=== PATIENT | female | born 1950 | race Caucasian/White ===

== ENCOUNTER 2016-10-08 10:36 | Observation (INO) | payer BC ==
[~2016-10-08] VITALS: Ht 167.6 cm; Wt 85.0 kg
[2016-10-08] VITALS (12 sets, daily range): BP systolic 113–146; BP diastolic 64–89; PULSE 66–88; RESP 16–22; TEMP 96.3–98.8; O2SAT 95–98
--- NOTE | 2016-10-08 10:54 | PD ---
HPI Chief Complaint: Chest Pain Time Seen by Provider: 10:52 Travel History International Travel<30 days: No Contact w/Intl Traveler<30days: No Traveled to known affect area: No History of Present Illness HPI 65-year-old female with history of hypertension and diabetes, presents to the ER today for sudden onset of substernal chest pains or radiation up to the left jaw and the left arm, measuring at a 8 out of 10 currently. She states that she was sitting at her desk when it happened. She did not note any exacerbating or alleviating factors. Her pain is currently an 8 out of 10. She has been nauseous. She denies any shortness of breath, coughing, fevers, or any other symptoms. She denies any previous episodes. Modifying Factors: None Associated Signs & Symptoms: Chest pain Risk Factors: Hypertension, diabetes PFSH Past Medical History ?: Not Social History Tobacco Use: No Allergies-Medications (Allergen,Severity, Reaction): Coded Allergies: No Known Allergies (Unverified , 10/08/16) Reported Meds & Prescriptions Reported Meds & Active Scripts Active Reported Simvastatin 5 Mg Tab 5 Mg PO DAILY Norvasc (Amlodipine Besylate) 5 Mg Tab 5 Mg PO DAILY Lisinopril 10 Mg Tab 10 Mg PO DAILY Review of Systems Except as stated in HPI: all other systems reviewed are Neg Physical Exam Narrative GENERAL: Well-developed elderly white female patient currently in mild distress. Mildly anxious. Awake and oriented 3. SKIN: Focused skin assessment warm/dry. HEAD: Atraumatic. Normocephalic. EYES: Pupils equal and round. No scleral icterus. No injection or drainage. ENT: No nasal bleeding or discharge. Mucous membranes pink and moist. NECK: Trachea midline. No JVD. CARDIOVASCULAR: Regular rate and rhythm. No murmur appreciated. Pulses are present and equal bilaterally. RESPIRATORY: No accessory muscle use. Clear to auscultation. Breath sounds equal bilaterally. GASTROINTESTINAL: Abdomen soft, non-tender, nondistended. Hepatic and splenic margins not palpable. MUSCULOSKELETAL: No obvious deformities. No clubbing. No cyanosis. No edema. NEUROLOGICAL: Awake and alert. No obvious cranial nerve deficits. Motor grossly within normal limits. Normal speech. PSYCHIATRIC: Appropriate mood and affect; insight and judgment normal. Data Data Last Documented VS Vital Signs Date Time Temp Pulse Resp B/P Pulse Ox O2 Delivery O2 Flow Rate FiO2 6/13/17 11:40 79 16 123/75 98 Room Air 10/08/16 10:37 98.8 Orders Electrocardiogram (10/08/16 ) Electrocardiogram (10/08/16 10:52) Ckmb (Isoenzyme) Profile (10/08/16 10:52) Complete Blood Count With Diff (10/08/16 10:52) Comprehensive Metabolic Panel (10/08/16 10:52) Magnesium (Mg) (10/08/16 10:52) Prothrombin Time / Inr (Pt) (10/08/16 10:52) Act Partial Throm Time (Ptt) (10/08/16 10:52) Troponin I (10/08/16 10:52) Chest, Single Ap (10/08/16 10:52) Ecg Monitoring (10/08/16 10:52) Bilateral Bp Monitoring (10/08/16 10:52) Iv Access Insert/Monitor (10/08/16 10:52) Oximetry (10/08/16 10:52) Oxygen Administration (10/08/16 10:52) Sodium Chloride 0.9% Flush (Ns Flush) (10/08/16 11:00) CKMB (10/08/16 10:50) CKMB% (10/08/16 10:50) Aspirin (Aspirin) (10/08/16 12:15) Nitroglycerin 2% Oint (Nitroglycerin 2% (10/08/16 12:15) Labs Laboratory Tests Test 10/08/16 10:50 White Blood Count 8.4 TH/MM3 Red Blood Count 3.92 MIL/MM3 Hemoglobin 12.1 GM/DL Hematocrit 34.8 % Mean Corpuscular Volume 88.6 FL Mean Corpuscular Hemoglobin 30.8 PG Mean Corpuscular Hemoglobin 34.8 % Concent Red Cell Distribution Width 13.5 % Platelet Count 176 TH/MM3 Mean Platelet Volume 10.0 FL Neutrophils (%) (Auto) 68.5 % Lymphocytes (%) (Auto) 23.6 % Monocytes (%) (Auto) 6.5 % Eosinophils (%) (Auto) 0.8 % Basophils (%) (Auto) 0.6 % Neutrophils # (Auto) 5.7 TH/MM3 Lymphocytes # (Auto) 2.0 TH/MM3 Monocytes # (Auto) 0.5 TH/MM3 Eosinophils # (Auto) 0.1 TH/MM3 Basophils # (Auto) 0.1 TH/MM3 CBC Comment DIFF FINAL Differential Comment Prothrombin Time 10.5 SEC Prothromb Time International 1.0 RATIO Ratio Activated Partial 25.2 SEC Thromboplast Time Sodium Level 141 MEQ/L Potassium Level 3.8 MEQ/L Chloride Level 106 MEQ/L Carbon Dioxide Level 27.3 MEQ/L Anion Gap 8 MEQ/L Blood Urea Nitrogen 20 MG/DL Creatinine 0.96 MG/DL Estimat Glomerular Filtration 58 ML/MIN Rate Random Glucose 95 MG/DL Calcium Level 9.6 MG/DL Magnesium Level 1.7 MG/DL Total Bilirubin 0.4 MG/DL Aspartate Amino Transf 30 U/L (AST/SGOT) Alanine Aminotransferase 41 U/L (ALT/SGPT) Alkaline Phosphatase 96 U/L Total Creatine Kinase 164 U/L Creatine Kinase MB 2.6 NG/ML Troponin I LESS THAN 0.02 NG/ML Total Protein 7.6 GM/DL Albumin 4.2 GM/DL MDM Medical Decision Making Medical Screen Exam Complete: Yes Emergency Medical Condition: Yes Medical Record Reviewed: Yes Interpretation(s) EKG shows sinus rhythm at a rate of 80 bpm with T-wave depressions in 1 and aVL. No signs of acute ST-T elevations. Last 24 hours Impressions Chest X-Ray 10/08/16 1052 Signed Impressions: Service Date/Time: Saturday, October 08, 2016 11:02 - CONCLUSION: No acute disease. Kristopher Frazier MD Laboratory Tests Test 10/08/16 10:50 Red Blood Count 3.92 MIL/MM3 (4.00-5.30) Hematocrit 34.8 % (35.0-46.0) Blood Urea Nitrogen 20 MG/DL (7-18) Estimat Glomerular Filtration 58 ML/MIN (>89) Rate Troponin I LESS THAN 0.02 NG/ML (0.02-0.05) Differential Diagnosis Chest painsACS versus dysrhythmias versus anxiety attack versus pneumonia Narrative Course EKG shows abnormal T waves in 1 and aVL. Cardiac enzymes are negative. Chest x -ray did not show any signs of acute processes. Vital signs are stable. Patient had been given aspirin in the ER. At this point, my plan would be to admit the patient for further treatment and evaluation of chest pain. Diagnosis Primary Impression: Chest pain Admitting Information Admitting Physician Requests: Admit Matt Gagnon MD Oct 08, 2016 10:54
[2016-10-08] MEDS ORDERED: LISI10TA3 PO (10:57)
[2016-10-08] MEDS ORDERED: SIMV5TAB3 PO (10:57)
[2016-10-08] MEDS ORDERED: AMLO5 PO (10:57)
[2016-10-08] MEDS ORDERED: SODIUM CHLORIDE 0.9% FLUSH 10 ML FLUSH IVF PRN (11:00)
[2016-10-08 11:24] LABS: AUTOMATED NEUTROPHIL # 5.7 TH/MM3 (1.8-7.7); BASOPHIL # 0.1 TH/MM3 (0-0.2); BASOPHIL % 0.6 % (0.0-2.0); EOSINOPHIL # 0.1 TH/MM3 (0-0.4); EOSINOPHIL % 0.8 % (0.0-4.0); HEMATOCRIT 34.8 % (35.0-46.0); HEMO FLAGS DIFF FINAL; LYMPH % 23.6 % (9.0-44.0); MEAN CELL VOLUME 88.6 FL (80.0-100.0); MEAN CORPUSCULAR HEMOGLOBIN 30.8 PG (27.0-34.0); MEAN CORPUSCULAR HGB CONC 34.8 % (32.0-36.0); MONO % 6.5 % (0.0-8.0); NEUT % 68.5 % (16.0-70.0); PLATELET COUNT 176 TH/MM3 (150-450); RED BLOOD COUNT 3.92 MIL/MM3 (4.00-5.30); RED CELL DISTRIBUTION WIDTH 13.5 % (11.6-17.2); WHITE BLOOD COUNT 8.4 TH/MM3 (4.0-11.0)
[2016-10-08 11:33] LABS: APTT (PATIENT) 25.2 SEC (24.3-30.1); PROTHROMBIN TIME - PATIENT 10.5 SEC (9.8-11.6)
--- NOTE | 2016-10-08 11:37 | RADRPT ---
EXAM DATE/TIME: 10/08/2016 11:02 [facility] COMPARISON: No previous studies available for comparison. INDICATIONS : Chest pain. MEDICAL HISTORY : None. SURGICAL HISTORY : None. ENCOUNTER: Initial ACUITY: 1 day PAIN SCORE: 9/10 LOCATION: Left upper chest FINDINGS: A single view of the chest demonstrates the lungs to be symmetrically aerated without evidence of mas s, infiltrate or effusion. The cardiomediastinal contours are unremarkable. Osseous structures are intact. CONCLUSION: No acute disease. Kristopher Frazier MD on October 08, 2016 at 11:34 Board Certified Radiologist. This report was verified electronically.
[2016-10-08 11:48] LABS: ALT (GPT) 41 U/L (10-53); ANION GAP 8 MEQ/L (5-15); AST (GOT) 30 U/L (15-37); BICARBONATE 27.3 MEQ/L (21.0-32.0); BLOOD UREA NITROGEN 20 MG/DL (7-18); CHLORIDE 106 MEQ/L (98-107); GLOMERULAR FILTRATION RATE 58 ML/MIN (>89); MAGNESIUM 1.7 MG/DL (1.5-2.5); POTASSIUM 3.8 MEQ/L (3.5-5.1); SODIUM (NA) 141 MEQ/L (136-145)
[2016-10-08 11:52] LABS: ALKALINE PHOSPHATASE 96 U/L (45-117); CREATINE KINASE 164 U/L (26-192); TOTAL BILIRUBIN ADULT 0.4 MG/DL (0.2-1.0)
[2016-10-08 12:05] LABS: CKMB 2.6 NG/ML (0.5-3.6)
[2016-10-08] MEDS ORDERED: NITROGLYCERIN 2% OINT 1 GM PACKET TOPICAL ONE (12:15)
[2016-10-08] MEDS ORDERED: ASPIRIN 325 MG TAB PO ONE (12:15)
[2016-10-08] MEDS ORDERED: SODIUM CHLORIDE 0.9% FLUSH 5 ML FLUSH IVF PRN (13:30)
[2016-10-08] MEDS ORDERED: ACETAMINOPHEN 500 MG CPLT PO PRN (13:30)
[2016-10-08] MEDS ORDERED: ALPRAZolam 0.25 MG TAB PO PRN (13:30)
[2016-10-08] MEDS ORDERED: ONDANSETRON HCL 4 MG/2 ML VIAL IV PRN (13:30)
[2016-10-08] MEDS ORDERED: ACETAMINOPHEN/HYDROcodone 325 MG/7.5 MG TAB PO PRN (13:30)
--- NOTE | 2016-10-08 13:34 | HHI.HP ---
HPI Primary Care Physician Non-Staff Chief Complaint Chest pain History of Present Illness This is a 65-year-old female that presents to ED via private vehicle with a friend from work with a complaint of developing a left upper chest pressure while sitting at desk at work. This began around 10:00 this morning and is still present at this time. She has nitroglycerin ointment on her chest and that has not improved her symptoms. The discomfort is currently been present for 3-1/2 hours. Nothing is improving symptoms. The discomfort radiates down her left arm tingling in her fingers as well as rating in the left side of her neck. The discomfort has been an 8 out of 10. She was nauseous. In time she has had a difficult time catching her breath. Taking a deep breath seems to worsen the symptoms. Denies diaphoresis. She also recalls last evening after having a burger without bowel movement and some qatari fries and a couple beers that she developed a burning sensation in her throat. She had no discomforts her chest with this. States she does not usually suffer from GERD. 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 Denies swelling in her legs. She states the discomfort is worsened with deep inspiration. Patient is not on hormone therapy. Review of Systems General: Patient denies fevers, chills recent. Patient has traveled to and from [place] recently. HEENT: Patient denies headache, sore throat, difficulty swallowing. Cardiovascular: Has the chest discomfort as mentioned above. Denies sensation of heart beating rapidly or irregularly. No syncope. Denies diaphoresis. Respiratory: A time she's had a difficult time catching her breath. Discomfort is worsened with deep inspiration. Denies coughing wheezing or hemoptysis. GI: She was little nauseated this morning. Patient denies vomiting, diarrhea, abdominal pain, bloody stools. Musculoskeletal: Patient denies joint pain or edema. Denies calf pain or edema. Neurovascular: Patient denies numbness, tingling, weakness in extremities. Denies headache. Endocrine: Denies polyuria and polydipsia. Hematologic: Denies easy bruising. Skin: Denies rash or itching. Past Family Social History Allergies: Coded Allergies: No Known Allergies (Unverified , 10/08/16) Past Medical History Hypertension, hyperlipidemia, diabetes, kidney stones. Denies known CAD. Past Surgical History Hysterectomy, ectopic , appendectomy, back surgery, and cataracts. Reported Medications Reported Meds & Active Scripts Active Reported Simvastatin 5 Mg Tab 5 Mg PO DAILY Norvasc (Amlodipine Besylate) 5 Mg Tab 5 Mg PO DAILY Lisinopril 10 Mg Tab 10 Mg PO DAILY Active Ordered Medications Current Medications Medications (Trade) Dose Ordered Sig/Tory Route Start Time Stop Time Status Last Admin (NS Flush) 2 ml UNSCH PRN IVF 10/08/16 11:00 (NS Flush) 2 ml UNSCH PRN IVF 10/08/16 13:30 UNV Family History Denies family history of CAD. Social History Patient is a nonsmoker. Has occasional alcohol. Denies illicit drugs. She is a nurse. Physical Exam Vital Signs Vital Signs Date Time Temp Pulse Resp B/P Pulse Ox O2 Delivery O2 Flow Rate FiO2 10/08/16 12:58 82 16 143/88 98 Room Air 10/08/16 11:40 79 16 123/75 98 Room Air 10/08/16 10:54 96 Room Air 10/08/16 10:54 96 Room Air 10/08/16 10:47 96 Room Air 10/08/16 10:43 78 22 142/89 97 10/08/16 10:37 98.8 88 19 146/74 97 Physical Exam GENERAL: This is a well-nourished, well-developed patient, in no apparent distress. Patient speaks in clear complete sentences. Patient is pleasant. Her daughter and other coworkers are also at the bedside. HEENT: Head is atraumatic and normocephalic. Neck is supple without lymphadenopathy and trachea is midline. No JVD or carotid bruits. CARDIOVASCULAR: Regular rate and rhythm without murmurs, gallops, or rubs. RESPIRATORY: Clear to auscultation. Breath sounds equal bilaterally. No wheezes , rales, or rhonchi. Left upper chest wall is tender and worsens the discomfort that she has been having. No use of accessory muscles. GASTROINTESTINAL: There is some mild epigastric tenderness. No guarding or rebound. Otherwise abdomen is nontender. Abdomen is nondistended. Abdomen soft. No obvious pulsatile mass or bruit. No CVA tenderness. Strong femoral pulses bilaterally. Normal bowel sounds in all quadrants. MUSCULOSKELETAL: Patient is moving upper and lower extremities freely. No calf tenderness or edema, no Homans sign. Strong pulses in upper and lower extremities. NEUROLOGICAL: Patient is alert and oriented. Cranial nerves 2-12 are grossly intact. No focal deficits and speech is clear. SKIN: No rash and turgor is normal. Laboratory Laboratory Tests Test 10/08/16 10:50 White Blood Count 8.4 Red Blood Count 3.92 Hemoglobin 12.1 Hematocrit 34.8 Mean Corpuscular Volume 88.6 Mean Corpuscular Hemoglobin 30.8 Mean Corpuscular Hemoglobin 34.8 Concent Red Cell Distribution Width 13.5 Platelet Count 176 Mean Platelet Volume 10.0 Neutrophils (%) (Auto) 68.5 Lymphocytes (%) (Auto) 23.6 Monocytes (%) (Auto) 6.5 Eosinophils (%) (Auto) 0.8 Basophils (%) (Auto) 0.6 Neutrophils # (Auto) 5.7 Lymphocytes # (Auto) 2.0 Monocytes # (Auto) 0.5 Eosinophils # (Auto) 0.1 Basophils # (Auto) 0.1 CBC Comment DIFF FINAL Differential Comment Prothrombin Time 10.5 Prothromb Time International 1.0 Ratio Activated Partial 25.2 Thromboplast Time Sodium Level 141 Potassium Level 3.8 Chloride Level 106 Carbon Dioxide Level 27.3 Anion Gap 8 Blood Urea Nitrogen 20 Creatinine 0.96 Estimat Glomerular Filtration 58 Rate Random Glucose 95 Calcium Level 9.6 Magnesium Level 1.7 Total Bilirubin 0.4 Aspartate Amino Transf 30 (AST/SGOT) Alanine Aminotransferase 41 (ALT/SGPT) Alkaline Phosphatase 96 Total Creatine Kinase 164 Creatine Kinase MB 2.6 Troponin I LESS THAN 0.02 Total Protein 7.6 Albumin 4.2 Result Diagram: 10/08/16 1050 10/08/16 1050 Imaging Last 24 hours Impressions Chest X-Ray 10/08/16 1052 Signed Impressions: Service Date/Time: Saturday, October 08, 2016 11:02 - CONCLUSION: No acute disease. Kristopher Frazier MD Course Initial EKG is sinus rhythm rate of [address] segment depressions or elevations. Assessment and Plan Assessment and Plan * Chest pain: Patient will continue to have serial cardiac enzymes and EKGs for ruling out purposes. She does have a pleuritic component of her chest discomfort and has traveled recently. We'll get a d-dimer. Patient will be seen by Dr. Zapata cardiology and the chest and center. Patient will likely have a stress test in the morning if she rules out and if pulmonary embolus is ruled out. We will also get a lipase level. * Hypertension: Continue current medication. * Diabetes: We'll hold metformin. She can resume it likely after discharge. We will cover with sliding scale insulin coverage. She should follow diabetic diet. * Hyperlipidemia: Continue current medication. Patient is stable at this time. She is agreeable to this plan. Sami Adair Oct 08, 2016 13:34
[2016-10-08] MEDS: PANTOPRAZOLE SOD 40 MG DELAYED RELEASE TAB PO SCH (15:09)
[2016-10-08 15:11] LABS: CREATINE KINASE 143 U/L (26-192)
[2016-10-08 15:26] LABS: CKMB 2.3 NG/ML (0.5-3.6)
[2016-10-08] MEDS ORDERED: METF500T PO (15:55)
[2016-10-08 17:46] LABS: CREATINE KINASE 138 U/L (26-192)
[2016-10-08 17:58] LABS: CKMB 2.3 NG/ML (0.5-3.6)
[2016-10-08] MEDS: SODIUM CHLORIDE 0.9% FLUSH 5 ML FLUSH IVF SCH (21:00)
[2016-10-09 06:22] VITALS: BP 123/66; PULSE 70; RESP 18; TEMP 97.6; O2SAT 98
[2016-10-09 08:00] VITALS: BP 103/58; PULSE 58; RESP 20; TEMP 95.2; O2SAT 97; O2SAT 98
[2016-10-09] MEDS ORDERED: REGADENOSON INJ 0.4 MG/5 ML SYR ONE (08:49)
[2016-10-09] MEDS ORDERED: ASPIRIN 325 MG TAB PO SCH (09:00)
[2016-10-09] MEDS: SODIUM CHLORIDE 0.9% FLUSH 5 ML FLUSH IVF SCH (09:00)
[2016-10-09 10:22] VITALS: PULSE 73
[2016-10-09] MEDS: PANTOPRAZOLE SOD 40 MG DELAYED RELEASE TAB PO SCH (10:22)
--- NOTE | 2016-10-09 11:31 | RADRPT ---
EXAM DATE/TIME: 10/09/2016 08:36 [facility] COMPARISON: No previous studies available for comparison. INDICATIONS : Left sided chest pain with shortness of breath and nausea for one day. Angina. DOSE: 26.1 mCi Tc99m Myoview at stress. 8.6 mCi Tc99m Myoview at rest. 0.4 mg Lexiscan STRESS SYMPTOMS: Chest pressure, headache and dyspnea. EJECTION FRACTION: 57% MEDICAL HISTORY : Hypertension. Diabetes mellitus type 2. SURGICAL HISTORY : Hysterectomy. Appendectomy. ENCOUNTER: Initial ACUITY: 1 day PAIN SCALE: 7/10 LOCATION: Left chest TECHNIQUE: The patient underwent pharmacologic stress with infusion of prescribed dose. Continuous ECG tracing was monitored during stress. Gated SPECT imaging was performed after stress and conventional SPECT i maging was performed at rest. The examination was performed on a SPECT/CT scanner, both attenuation and non-corrected datasets were reviewed. FINDINGS: DISTRIBUTION: The maximum perfused segment at stress is in the anterior wall. PERFUSION STUDY: The pattern of perfusion at stress is within normal limits. GATED STUDY: There is intact wall motion and thickening without hypokinetic or dyskinetic segments. CONCLUSION: 1. No reversible perfusion defect to indicate stress-induced myocardial ischemia identified. RISK CATEGORY: Low (<1% Annual Mortality Rate) Grayson Cee MD on October 09, 2016 at 11:27 Board Certified Radiologist. This report was verified electronically.
--- NOTE | 2016-10-09 11:38 | HHI.DCPOC ---
Discharge Care Plan Diagnosis: (1) Chest pain, atypical (2) Hypertension (3) Hyperlipidemia (4) DM (diabetes mellitus) Goals to Promote Your Health * To prevent worsening of your condition and complications * To maintain your health at the optimal level Directions to Meet Your Goals Take your medications as prescribed Follow your dietary instruction Follow activity as directed Keep your appointments as scheduled Take your immunizations and boosters as scheduled If your symptoms worsen call your PCP, if no PCP go to Urgent Care Center or Emergency Room Smoking is Dangerous to Your Health. Avoid second hand smoke Call the 24-hour hour crisis hotline for domestic abuse at Sami Adair Oct 09, 2016 11:38
--- NOTE | 2016-10-11 14:29 | EKG ---
Date Performed: 10/08/2016 Time Performed: 16:50:28 PTAGE: 65 years EKG: Sinus rhythm NORMAL ECG PREVIOUS TRACING : 10/08/2016 14.47 Since previous tracing, no significant change noted DOCTOR: Dionicio Oshea Interpretating Date/Time 10/11/2016 14:26:31
--- NOTE | 2016-10-11 14:30 | EKG ---
Date Performed: 10/08/2016 Time Performed: 14:47:25 PTAGE: 65 years EKG: Sinus rhythm NORMAL ECG NO PREVIOUS TRACING DOCTOR: Dionicio Oshea Interpretating Date/Time 10/11/2016 14:26:59
--- NOTE | 2016-10-11 14:30 | EKG ---
Date Performed: 10/08/2016 Time Performed: 10:50:18 PTAGE: 65 years EKG: Sinus rhythm ST DEVIATION AND MODERATE T-WAVE ABNORMALITY, CONSIDER LATERAL ISCHEMIA ABNORMAL ECG NO PREVIOUS TRACING DOCTOR: Dionicio Oshea Interpretating Date/Time 10/11/2016 14:27:04
--- NOTE | 2016-10-11 14:32 | TR ---
Date Performed: 10/09/2016 Time Performed: 09:13:37 DOCTOR: Dionicio Oshea DRUG LIST: CLINICAL HISTORY: REASON FOR TEST: CHEST PAIN REASON FOR ENDING: OBSERVATION: CONCLUSION: Lexiscan stress test was performed under standard four minute protocol. Radionuclid e was injected one minute prior to ending the test. No electrocardiographic abormalities were present to suggest ischemia. Nuclear imaging and interpretation are pending. COMMENTS:
== END 2016-10-09 12:18 | disposition home or self-care (01) ==
LOC: NEPC 10:36 → NEDA 12:18 → NEPHCDU 14:58
PROVIDERS: ADMIT Internal Medicine Interventional Cardiology; ATTEND Internal Medicine Interventional Cardiology
DX: R07.89 Other chest pain (principal); I10 Essential (primary) hypertension; E11.9 Type 2 diabetes mellitus without complications; E78.5 Hyperlipidemia, unspecified; Z79.84 Long term (current) use of oral hypoglycemic drugs
CPT/HCPCS: 71010; 78452; 80053; 82550; 82552; 83690; 83735; 84484; 85025; 85379; 85610; 85730; 93005; 93017; 99285; A9502; G0378; J2785